=== PATIENT | female | born 1975 | race Caucasian/White ===

== ENCOUNTER 2017-08-06 13:20 | Emergency (ER) | payer OTHER ==
[~2017-08-06] VITALS: Ht 172.7 cm; Wt 90.7 kg
== END 2017-08-06 15:57 | disposition home or self-care (01) ==
LOC: ED 13:20
DX: K42.9 Umbilical hernia without obstruction or gangrene (principal); F17.200 Nicotine dependence, unspecified, uncomplicated; Z90.49 Acquired absence of other specified parts of digestive tract; Z98.890 Other specified postprocedural states; Z88.6 Allergy status to analgesic agent
CPT/HCPCS: 74177; 80053; 81001; 82150; 83690; 84703; 85025; 96374; 99284; Q9967

== ENCOUNTER 2018-10-14 21:41 | Emergency (ER) | payer OTHER ==
[~2018-10-14] VITALS: Ht 172.7 cm; Wt 90.7 kg
--- OUTSIDE RECORDS SUMMARY | 2018-10-14 21:44 | XMS ---
PreManage Notification: DEVON CHATTERJEE [employer] Supervisor Events No recent Security Events currently on file CRITERIA MET - Group Notification CARE PROVIDERS There are no care providers on record at this time. Amna has no Care Guidelines for this patient. Fang VISIT COUNT (12 MO.) 1 [facility] [place] TOTAL 1 NOTE: Visits indicate total known visits. ED/C VISIT TRACKING (12 MO.) 10/14/2018 21:42 [facility] [place] TYPE: Emergency COMPLAINT: - STROKE SYMPTOMS INPATIENT VISIT TRACKING (12 MO.) No inpatient visits to display in this time frame [id number]
[2018-10-15] MEDS ORDERED: METHYLPREDNISOLO4 M1 PO (18:21)
[2018-10-15] MEDS ORDERED: FAMCICLOVIR500 MG PO (18:21)
--- NOTE | 2018-10-16 00:33 | EKG ---
[facility] [address] [place] [address] Signed Normal sinus rhythm Low voltage QRS Borderline ECG No previous ECGs available Confirmed by MARLA NAZARIO MD ([id number]) on 10/16/2018 12:33:08 AM Electronically Signed By: MARLA NAZARIO MD 10/16/18 0033 PATIENT NAME: DEVON CHATTERJEE Electrocardiogram DATE OF : 75 PHYSICIAN: MARLA NAZARIO MD REPORT #: [id number] REPORT IS CONFIDENTIAL AND NOT TO BE RELEASED WITHOUT AUTHORIZATION
== END 2018-10-15 00:32 | disposition home or self-care (01) ==
LOC: ED 21:41
DX: R20.2 Paresthesia of skin (principal); F17.200 Nicotine dependence, unspecified, uncomplicated; Z88.6 Allergy status to analgesic agent
CPT/HCPCS: 70450; 71045; 80053; 81001; 84484; 84703; 93005; 93010; 99284-25

== ENCOUNTER 2018-10-15 13:21 | Emergency (ER) | payer OTHER ==
[~2018-10-15] VITALS: Ht 172.7 cm; Wt 90.7 kg
--- OUTSIDE RECORDS SUMMARY | 2018-10-15 13:24 | XMS ---
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 - 2 Visits in 30 Days CARE PROVIDERS RADHA GARBER Physician Weight Checker 10/15/2018-Current PHONE: [phone] Amna has no Care Guidelines for this patient. Fang VISIT COUNT (12 MO.) 2 [facility] TOTAL 2 NOTE: Visits indicate total known visits. ED/C VISIT TRACKING (12 MO.) 10/15/2018 13:21 [facility] [place] TYPE: Emergency COMPLAINT: - R SIDED FACIAL NUMBNESS 10/14/2018 21:42 [facility] [place] TYPE: Emergency COMPLAINT: - FACIAL NUMBNESS/DROOP INPATIENT VISIT TRACKING (12 MO.) No inpatient visits to display in this time frame [id number]
[2018-10-15] MEDS ORDERED: METHYLPREDNISOLO4 M1 PO (18:21)
[2018-10-15] MEDS ORDERED: FAMCICLOVIR500 MG PO (18:21)
--- NOTE | 2018-10-16 00:34 | EKG ---
[facility] [address] [place] [address] Signed Normal sinus rhythm Low voltage QRS Borderline ECG When compared with ECG of 14-OCT-2018 22:14, (Unconfirmed) No significant change was found Confirmed by MARLA NAZARIO MD ([id number]) on 10/16/2018 12:34:23 AM Electronically Signed By: MARLA NAZARIO MD 10/16/18 0034 PATIENT NAME: DEVON CHATTERJEE Electrocardiogram DATE OF : 75 PHYSICIAN: MALRA NAZARIO MD REPORT #: [id number] REPORT IS CONFIDENTIAL AND NOT TO BE RELEASED WITHOUT AUTHORIZATION
== END 2018-10-15 18:30 | disposition home or self-care (01) ==
LOC: ED 13:21
DX: G51.0 Bell's palsy (principal); F17.200 Nicotine dependence, unspecified, uncomplicated; Z88.8 Allergy status to other drugs, medicaments and biological substances
CPT/HCPCS: 70551; 80053; 84484; 85025; 85610; 85730; 93005; 93010; 99284-25; 99406